=== PATIENT | female | born 1950 | race Two or more races ===

== ENCOUNTER 2017-08-12 18:09 | Emergency (ER) | payer OTHER ==
[~2017-08-12] VITALS: Ht 165.1 cm; Wt 90.7 kg
[2017-08-12] MEDS ORDERED: OXYMETAZOLINE HCL 0.05 % NASAL SPRAY 15ML ONE (18:55)
[2017-08-12] MEDS ORDERED: PHENYLEPHRINE HCL 0.5 % NASAL SPRAY 15ML ONE (19:15)
[2017-08-12 19:51] LABS: Basophils # (auto) 0.1 uL; Basophils % (auto) 0.6 % (0.0-2.0); Eosinophils # (auto) 0.1 uL; Eosinophils % (auto) 0.7 % (0.0-7.0); Hematocrit 47.1 % (36.0-46.0); Lymphocytes # (auto) 1.5 uL; Mean Corpuscular Hemoglobin 30.7 pg (28.0-32.0); Mean Corpuscular Hgb Conc. 34.1 g/dL (32.0-36.0); Mean Corpuscular Volume 90.1 fL (80.0-100.0); Monocytes % (auto) 8.6 % (0.0-12.0); Neutrophils # (auto) 9.1 uL; Neutrophils % (auto) 77.1 % (37.0-80.0); Nucleated Red Blood Cells % 0.1 %; Platelet Count (auto) 197 10^3/uL (140-450); Red Blood Cells 5.23 10^6/uL (4.0-5.20); Red Cell Distribution Width 13.4 % (11.8-14.3); White Blood Cell 11.8 10^3/uL (4.4-10.8)
[2017-08-12 20:06] LABS: Albumin 3.5 g/dL (3.4-5.0); Calcium 8.9 mg/dL (8.5-10.1); INR 1.02 (0.9-1.15); Partial Thromboplastin Time 29.6 sec (22.64-33.71); Potassium 4.2 mmol/L (3.5-5.1); Prothrombin Time 11.1 sec (9.37-12.3)
[2017-08-12 20:09] LABS: Bilirubin, Total 0.4 mg/dL (0.2-1.0); Total Protein 7.6 g/dL (6.4-8.2)
[2017-08-12] MEDS ORDERED: BACITRACIN-POLYMYXIN B TOPICAL OINT UD TOP ONE (20:42)
[2017-08-12] MEDS ORDERED: BACITRACIN TOP OINT 1 UD PKG TOP ONE (21:15)
[2017-08-12] MEDS ORDERED: SODIUM CHLORIDE 0.9% 1,000 ML IV ONE (21:15)
[2017-08-12] MEDS ORDERED: COCAINE HCL 4% TOP SOL 4ML TOP ONE ×2 (22:29→22:45)
[2017-08-12] MEDS ORDERED: cefTRIAXone 1GM/10ml IVPUSH 10 ML IV ONE (23:00)
[2017-08-13 00:22] VITALS: BP 151/86
== END 2017-08-13 00:36 | disposition home or self-care (01) ==
LOC: ER 18:09
DX: R04.0 Epistaxis (principal); R51 Headache
CPT/HCPCS: 30901; 36415; 70450; 80053; 85025; 85610; 85730; 96361; 96374; 99285; J7030